=== PATIENT | female | born 1985 | race Caucasian/White ===

== ENCOUNTER 2021-09-29 00:35 | Emergency (ER) | payer MEDICAID ==
[~2021-09-29] VITALS: Ht 165.1 cm; Wt 104.3 kg
--- NOTE | 2021-09-29 01:46 | NUR ---
pt in room 4b, c/o cough for 4 days.
--- NOTE | 2021-09-29 02:19 | NUR ---
Dr. Beaver at bedside for MSE.
[2021-09-29] MEDS ORDERED: IPRATROPIUM BROMIDE 0.5 MG/2.5 ML NEBU NEB ONE (02:30)
[2021-09-29] MEDS ORDERED: ALBUTEROL SULFATE 2.5 MG/3 ML NEBU NEB ONE (02:30)
[2021-09-29] MEDS ORDERED: IPRATROPIUM BROMIDE 0.5 MG/2.5 ML NEBU ONE (02:39)
[2021-09-29] MEDS ORDERED: ALBUTEROL SULFATE 2.5 MG/3 ML NEBU ONE (02:39)
[2021-09-29 03:00] LABS: HEMATOCRIT 39.8 % (31.2-41.9); MEAN CORPUSCULAR HEMOGLOBIN 31.8 uug (24.7-32.8); MEAN CORPUSCULAR VOLUME 90.6 fL (75.5-95.3); PLATELET COUNT (AUTO) 380 K/uL (179-408)
[2021-09-29 03:11] LABS: BILIRUBIN,DIRECT 0.1 mg/dL (0.0-0.2); BILIRUBIN,TOTAL 0.8 mg/dL (0.2-1.0); CREATININE 0.9 mg/dL (0.6-1.3); POTASSIUM 3.5 mmol/L (3.5-5.1); TOTAL PROTEIN, SERUM 7.9 g/dL (6.4-8.2)
--- NOTE | 2021-09-29 04:16 | NUR ---
Dr. Beaver at bedside speaking with the pt and her boyfriend.
[2021-09-29] MEDS ORDERED: DOXY-326 PO (04:42)
[2021-09-29] MEDS ORDERED: FLUT10.62 INH (04:42)
[2021-09-29] MEDS ORDERED: ALBU6.7H9 INH (04:42)
[2021-09-29] MEDS ORDERED: FLUC150T PO (04:42)
--- NOTE | 2021-09-29 04:51 | NUR ---
Patient discharged to home in stable condition. Written and verbal after care instructions given. Patient verbalizes understanding of instructions. Stressed follow up or return to ER for worsening s/s.
[2021-09-29 04:52] VITALS: BP 155/100
--- NOTE | 2021-09-29 05:07 | NUR ---
Alex aquino in ED - 09/29/21 at 0509 by LUZ Patient discharged to home in stable condition. Written and verbal after care instructions given. Patient verbalizes understanding of instructions. Stressed follow up or return to ER for worsening s/s.
== END 2021-09-29 04:52 | disposition home or self-care (01) ==
LOC: ER 00:48
DX: J45.909 Unspecified asthma, uncomplicated (principal); I10 Essential (primary) hypertension; D72.829 Elevated white blood cell count, unspecified
CPT/HCPCS: 36415; 71045; 83735; 85025; A4663; J3590